=== PATIENT | male | born 1965 | race Caucasian/White ===

== ENCOUNTER 2021-12-07 17:06 | Emergency (ER) | payer BC ==
[2021-12-07] MEDS ORDERED: Diphtheria,Pertussis(Acell),Tetanus Vaccine 0.5 ML Syringe IM ONE (17:09)
[2021-12-07] MEDS ORDERED: Bacitracin Oint 1 GM U/D Packet TOP ONE (17:09)
[2021-12-07] MEDS ORDERED: Lidocaine 1% PF 2 ML SDV INJECT ONE (17:09)
== END 2021-12-07 18:45 | disposition home or self-care (01) ==
LOC: MW.ED 17:06
DX: S62.635B Displaced fracture of distal phalanx of left ring finger, initial encounter for open fracture (principal); Z23 Encounter for immunization; W23.0XXA Caught, crushed, jammed, or pinched between moving objects, initial encounter
CPT/HCPCS: 12001; 73140-26-F8; 73140-F8; 90471; 90715; 99283-25